=== PATIENT | male | born 1970 | race Caucasian/White ===

== ENCOUNTER 2016-09-27 08:37 | Emergency (ER) | payer OTHER ==
[2016-09-27 09:39] VITALS: BP 159/102
--- NOTE | 2016-09-27 10:27 | UC ---
Truncal Trauma HPI - HPI Summary HPI Summary: The patient comes in today for: 1. Left chest pain: Onset: 19 days ago. Palliative/provocative: Pressing on it, coughing, moving, makes it worse. Rest makes it better. Quality: Stabbing Region: Upper left anterior chest. Severity: 5/10 Time: Constant. Associated symptoms: Event: 19 days ago, he was wrestling and during that time, he suffered onset of this problem. Hemoptysis: None. Dyspnea: None. "I know I have a rib fracture." * - History Of Current Complaint Chief Complaint: UCRespiratory Stated Complaint: RIB PAIN Time Seen by Provider: 09/27/16 10:22 Hx Obtained From: Patient - Allergies/Home Medications Allergies/Adverse Reactions: Allergies Allergy/AdvReac Type Severity Reaction Status Date / Time No Known Allergies Allergy Verified 09/27/16 09:23 PMH/Surg Hx/FS Hx/Imm Hx Previously Healthy: No - Skin cancer. Endocrine History Of: Denies: Diabetes, Thyroid Disease, Hyperthyroidism, Hypothyroidism, Dyslipidemia Cardiovascular History Of: Reports: Hypertension - ON MEDS Denies: Cardiac Disorders, Pacemaker/ICD, Myocardial Infarction, Congestive Heart Failure, Atrial Fibrillation, Deep Vein Thrombosis, Bleeding Disorders Respiratory History Of: Reports: Bronchitis - 2 WEEKS AGO, SLIGHT COUGH STILL Denies: COPD, Asthma, Pneumonia, Pulmonary Embolism GI/ History Of: Reports: Kidney Stones - IN THE PAST Denies: Gastroesophageal Reflux, Ulcer, Gastrointestinal Bleed, Gall Bladder Disease, Diverticulitis, Renal Disease, Urosepsis Neurological History Of: Denies: TIA, CVA, Dementia, Seizures, Migraine Psychological History Of: Reports: Anxiety - ON MEDS Denies: Depression, Bipolar Disorder, Schizophrenia, Post Traumatic Stress Disorder Cancer History Of: Denies: Lung Cancer, Colorectal Cancer, Breast Cancer, Prostate Cancer, Cervical Cancer Other History Of: Negative For: HIV, Hepatitis B, Hepatitis C, Anticoagulant Therapy - Surgical History Surgical History: Yes Surgery Procedure, Year, and Place: Bilateral Inguinal Herrniorhaphy. WISDOM TEETH - Family History Known Family History: Positive: Cardiac Disease - Father [place] precipitated by accident. Negative: Unknown, Diabetes - Social History Occupation: Employed Full-time Alcohol Use: Daily Alcohol Amount: 6 beers daily Substance Use Type: None Substance Use Comment - Amount & Last Used: marijuana "once a month ... daily if I have it" Smoking Status (MU): Heavy Every Day Tobacco Smoker Type: Cigarettes Amount Used/How Often: 1 PPD Length of Time of Smoking/Using Tobacco: 35 Years Have You Smoked in the Last Year: Yes Household Exposure Type: Cigarettes Review of Systems Constitutional: Negative Skin: Negative Eyes: Negative ENT: Negative Respiratory: Negative Cardiovascular: Negative Gastrointestinal: Negative Genitourinary: Negative All Other Systems Reviewed And Are Negative: Yes Physical Exam Triage Information Reviewed: Yes Appearance: Well-Appearing, No Pain Distress, Well-Nourished Vital Signs: Initial Vital Signs Temp 98.4 F 09/27/16 09:24 Pulse 91 09/27/16 09:24 Resp 24 09/27/16 09:24 BP 159/102 09/27/16 09:24 Pulse Ox 100 09/27/16 09:24 Vital Signs Reviewed: Yes Eyes: Positive: Conjunctiva Clear. Negative: Discharge ENT: Positive: Hearing grossly normal. Negative: Pharyngeal erythema, Nasal congestion, Nasal drainage, TM bulging, TM dull, TM red, Tonsillar swelling, Tonsillar exudate Dental: Negative: Gross Decay/Caries @, Dental Fracture @ Neck: Positive: Supple, Nontender, No Lymphadenopathy. Negative: Nuchal Rigidity Respiratory: Positive: Lungs clear, No respiratory distress, No accessory muscle use. Negative: Crackles, Wheezing Cardiovascular: Positive: RRR, No Murmur Abdomen Description: Positive: Nontender, No Organomegaly, Soft. Negative: Distended, Guarding Musculoskeletal: Positive: Strength Intact, ROM Intact Neurological: Positive: Alert, Muscle Tone Normal Psychological: Negative: Age Appropriate Behavior, Consolable Skin: Negative: rashes, breakdown Truncal Trauma Course/Dx - Differential Dx/Diagnosis Provider Diagnoses: Rib injury Discharge - Discharge Plan Condition: Stable Disposition: HOME Patient Education Materials: Rib Fracture (ED) Referrals: Francisco Browning DO [Primary Care Provider] - 1 Week (Please see your primary care provider in about a week to see how well you are doing. If you get worse, please be seen sooner.)
--- NOTE | 2016-09-27 11:05 | RAD ---
INDICATION: Rib pain COMPARISON: Chest x-ray May 28, 2016 TECHNIQUE: Multiple views of the ribs were obtained. FINDINGS: Bones: There is no evidence of acute rib fracture. There are old left ninth and right ninth and 10th rib fractures. LUNGS: The lungs are clear. There is no pneumothorax. Pleural spaces: There is no evidence of hemothorax. Other: None IMPRESSION: No acute rib fracture. Old, healed, bilateral rib fractures.
== END 2016-09-27 11:05 | disposition home or self-care (01) ==
LOC: UCCORT 08:37
DX: R07.81 Pleurodynia (principal); I10 Essential (primary) hypertension; F41.9 Anxiety disorder, unspecified; F10.99 Alcohol use, unspecified with unspecified alcohol-induced disorder; F12.90 Cannabis use, unspecified, uncomplicated; F17.210 Nicotine dependence, cigarettes, uncomplicated; Z87.81 Personal history of (healed) traumatic fracture
CPT/HCPCS: 99211; G0463

== ENCOUNTER 2018-08-02 13:23 | Emergency (ER) | payer SELFPAY ==
[2018-08-02 13:43] VITALS: BP 135/86
--- NOTE | 2018-08-02 13:52 | UC ---
General HPI - HPI Summary HPI Summary: L eye red, irritated, crusting and puss, onset yesterday. today, R eye is a little red. no contact use or visual loss. + head congestion and sore throat x 2 days. - History of Current Complaint Chief Complaint: UCEye Stated Complaint: LEFT EYE COMPLAINT Time Seen by Provider: 08/02/18 13:34 Pain Intensity: 0 Aggravating: nothing Alleviating: nothing Associated Signs & Symptoms: Negative: Fever, Headache - Allergy/Home Medications Allergies/Adverse Reactions: Allergies Allergy/AdvReac Type Severity Reaction Status Date / Time No Known Allergies Allergy Verified 08/02/18 13:38 Home Medications: Home Medications amLODIPine TAB* [Norvasc 5 mg TAB*] 10 mg PO DAILY 08/02/18 [History Confirmed 08/02/18] PMH/Surg Hx/FS Hx/Imm Hx Cardiovascular History: Hypertension Psychological History: Anxiety Other History Of: Negative For: HIV, Hepatitis B, Hepatitis C, Anticoagulant Therapy - Surgical History Surgical History: Yes Surgery Procedure, Year, and Place: Bilateral Inguinal Herrniorhaphy. WISDOM TEETH - Family History Known Family History: Positive: Cardiac Disease - Father [place] precipitated by accident. Negative: Unknown, Diabetes - Social History Occupation: Employed Full-time Alcohol Use: 6 beers daily Alcohol Amount: 6 beers daily Substance Use Type: None Substance Use Comment - Amount & Last Used: marijuana "once a month ... daily if I have it" Smoking Status (MU): Heavy Every Day Tobacco Smoker Type: Cigarettes Amount Used/How Often: 1 PPD Length of Time of Smoking/Using Tobacco: Since Age 9 Have You Smoked in the Last Year: Yes Household Exposure Type: Cigarettes Review of Systems All Other Systems Reviewed And Are Negative: Yes Eyes: Positive: Drainage - L, Eye Redness. Negative: Blurred Vision, Diplopia, Photophobia ENT: Positive: Sore Throat, Nasal Discharge Is Patient Immunocompromised?: Yes Physical Exam Triage Information Reviewed: Yes Appearance: Well-Appearing Vital Signs: Initial Vital Signs Temp 98 F 08/02/18 13:36 Pulse 89 08/02/18 13:36 Resp 14 08/02/18 13:36 BP 135/86 08/02/18 13:36 Pulse Ox 100 08/02/18 13:36 Vital Signs Reviewed: Yes Eyes: Positive: Other: - vision with no correction OD/OU/OS=20/30. No auricular adenopathy. No periorbital edema or rash. Conjunctive deeply injected on L and mild on R with mild conjunctival chemosis on L as well. ac's clear. PERRL, EOMI. ENT: Positive: Pharyngeal erythema - with mild swelling, Nasal congestion, TMs normal, Uvula midline. Negative: Nasal drainage, Trismus, Muffled voice, Hoarse voice, Sinus tenderness Neck: Positive: Supple, Nontender, No Lymphadenopathy Respiratory: Positive: Lungs clear, Normal breath sounds Cardiovascular: Positive: RRR, No Murmur Abdomen Description: Positive: Nontender, No Organomegaly, Soft Bowel Sounds: Positive: Present Musculoskeletal: Positive: ROM Intact Neurological: Positive: Alert Psychological: Positive: Age Appropriate Behavior Skin Exam: Normal Course/Dx - Course Course Of Treatment: hx and exam c/w viral conjunctivitis (possible adeno virus ) with secodary bacterial infection given hx of purulent drainage thus will tx with polytrim drops. will also refer to opthamology due to degree of inflammation in L eye. no concern for FB, abrasion or ulceration. rapid strep= NEG. - Diagnoses Provider Diagnosis: Conjunctivitis, Chemosis, conjunctiva, URI (upper respiratory infection) Discharge - Sign-Out/Discharge Documenting (check all that apply): Patient Departure All imaging exams completed and their final reports reviewed: No Studies - Discharge Plan Condition: Stable Disposition: HOME Prescriptions: Polymyx/Trimethoprim OPTH* [Polytrim OPHTH*] 1 drop BOTH EYES Q3H 7 Days #1 btl Patient Education Materials: Upper Respiratory Infection (DC), Conjunctivitis ( ED), Pharyngitis (ED) Forms: *Work Release Referrals: Marlon Ward MD [Primary Care Provider] - Puja Goyal MD [Medical Doctor] - Additional Instructions: FOLLOW UP PRIMARY CARE IF SINUSES AND THROAT ARE NOT BETTER IN 5-7 DAYS OR SOONER IF WORSE. FOLLOW UP WITH DR GOYAL IN 1-2 DAYS FOR A RECHECK OF YOUR EYES OR SOONER IF WORSE. - Billing Disposition and Condition Condition: STABLE Disposition: Home
== END 2018-08-02 14:14 | disposition home or self-care (01) ==
LOC: UCCORT 13:23
DX: B30.9 Viral conjunctivitis, unspecified (principal); H11.429 Conjunctival edema, unspecified eye; J06.9 Acute upper respiratory infection, unspecified; I10 Essential (primary) hypertension; F17.210 Nicotine dependence, cigarettes, uncomplicated
CPT/HCPCS: 87651; 99212; G0463

== ENCOUNTER 2019-07-02 10:44 | Emergency (ER) | payer BC, MEDICAID ==
[2019-07-02 11:21] VITALS: BP 135/81
--- NOTE | 2019-07-02 11:55 | UC ---
Truncal Trauma HPI - HPI Summary HPI Summary: 49 yo male fell off ladder 06/21 taken to trauma center ([facility]) injuries included: sternal fracture multiiple left sided rib fractures left pulmonary contusion left ptx left clavicular fx burst fx L1 requring surgery discharged with three days narcotic pain meds now just taking motrin pain is severe and making it difficult to sleep/do insentive spirometry mom and dad looking in on him multiple times daily he does not live alone - History Of Current Complaint Chief Complaint: UCGeneralIllness Stated Complaint: SOB Time Seen by Provider: 07/02/19 11:12 Hx Obtained From: Patient Onset/Duration: Sudden Onset, Lasting Days Severity Initially: Severe Severity Currently: Severe Pain Intensity: 10 Pain Scale Used: 0-10 Numeric Mechanism Of Injury: Fall From Height Of: - ? was on ladder..unsure how high up Aggravating Factor(s): Movement, Deep Breathing, Cough Alleviating factor(s): Nothing Associated Signs And Symptoms: Positive: Chest Pain Torso: 1 - swollen/ecchymotic 2 - tender 3 - sutures 4 - hardware tenting up here - Allergies/Home Medications Allergies/Adverse Reactions: Allergies Allergy/AdvReac Type Severity Reaction Status Date / Time levetiracetam Allergy Unknown Verified 07/02/19 10:57 Reaction Details Home Medications: Home Medications oxyCODONE/Acetamin 5/325 MG* [Percocet 5/325 TAB*] 1 tab PO Q4H PRN MDD 6 tab [History Confirmed 07/02/19] PMH/Surg Hx/FS Hx/Imm Hx Previously Healthy: Yes Cardiovascular History: Hypertension Other History Of: Negative For: HIV, Hepatitis B, Hepatitis C, Anticoagulant Therapy - Surgical History Surgical History: Yes Surgery Procedure, Year, and Place: Bilateral Inguinal Herrniorhaphy. WISDOM TEETH. patternmaker sample inplantation. spine - Family History Known Family History: Positive: Cardiac Disease - Father [place] precipitated by accident., Hypertension Negative: Unknown, Diabetes - Social History Alcohol Use: Daily Alcohol Amount: 12 (states 4-6 beers after week) None past couple of days Substance Use Type: Prescribed Substance Use Comment - Amount & Last Used: occasional Smoking Status (MU): Heavy Every Day Tobacco Smoker Type: Cigarettes Amount Used/How Often: reports 1/2 ppd Length of Time of Smoking/Using Tobacco: Since Age 9 Have You Smoked in the Last Year: Yes Household Exposure Type: Cigarettes Review of Systems All Other Systems Reviewed And Are Negative: Yes Constitutional: Positive: Fatigue Skin: Positive: Bruising Eyes: Positive: Negative ENT: Positive: Negative Respiratory: Negative: Shortness Of Breath, Cough Cardiovascular: Positive: Chest Pain Gastrointestinal: Positive: Negative. Negative: Abdominal Pain Genitourinary: Positive: Negative Musculoskeletal: Positive: Negative Neurological: Positive: Negative Psychological: Positive: Negative Physical Exam Vital Signs: Initial Vital Signs Temp 98.5 F 07/02/19 11:02 Pulse 87 07/02/19 11:02 Resp 24 07/02/19 11:02 BP 135/81 07/02/19 11:02 Pulse Ox 100 07/02/19 11:02 Truncal Trauma Course/Dx - Differential Dx/Diagnosis Provider Diagnosis: Fracture of ribs, multiple, Sternal fracture, Closed left clavicular fracture, Burst fracture of lumbar vertebra Discharge ED - Sign-Out/Discharge Documenting (check all that apply): Patient Departure All imaging exams completed and their final reports reviewed: No Studies - Discharge Plan Condition: Stable Disposition: HOME Patient Education Materials: Rib Fracture (ED) Referrals: Wallace Robb MD [Primary Care Provider] - Additional Instructions: percocet 5/235 one every 4 hours for severe pain # 18 restart your stool softener take a picture of your back concern and send it to your back surgeon see your specimen preparation assistant early next week to ER for new or worsening symptoms - Billing Disposition and Condition Condition: STABLE Disposition: Home
== END 2019-07-02 12:15 | disposition home or self-care (01) ==
LOC: UCCORT 10:44
DX: R07.89 Other chest pain (principal); S22.42XD Multiple fractures of ribs, left side, subsequent encounter for fracture with routine healing; S22.20XD Unspecified fracture of sternum, subsequent encounter for fracture with routine healing; S42.002D Fracture of unspecified part of left clavicle, subsequent encounter for fracture with routine healing; S32.011D Stable burst fracture of first lumbar vertebra, subsequent encounter for fracture with routine healing; W11.XXXD Fall on and from ladder, subsequent encounter; I10 Essential (primary) hypertension; Z88.8 Allergy status to other drugs, medicaments and biological substances; F17.210 Nicotine dependence, cigarettes, uncomplicated
CPT/HCPCS: 99212; G0463

== ENCOUNTER 2019-07-28 11:56 | Emergency (ER) | payer MEDICAID, OTHER ==
[2019-07-28 12:24] VITALS: BP 154/97
--- NOTE | 2019-07-28 12:56 | UC ---
Abdominal Pain Male HPI - HPI Summary HPI Summary: 49 yo male fell off ladder 06/21 taken to trauma center ([facility]) injuries included: sternal fracture multiiple left sided rib fractures left pulmonary contusion left clavicular fx burst fx L1 requring surgery now with 1-2 week hx of increasing left flank swelling and pain no hematuria no bowel or bladder dysfunction - History of Current Complaint Chief Complaint: UCAbdominalPain Stated Complaint: BACK/MIDRIFT PAIN(BACK SURGERY A MONTH AGO) Time Seen by Provider: 07/28/19 12:16 Hx Obtained From: Patient Onset/Duration: Gradual Onset Timing: Constant Severity Initially: Mild Severity Currently: Mild Pain Intensity: 3 Pain Scale Used: 0-10 Numeric Location: Other - left flank Character: Dull Aggravating Factor(s): Movement Alleviating Factor(s): Rest Associated Signs And Symptoms: Positive: Negative Male Torso: 1 - pain and swelling here extending to left flank - Allergies/Home Medications Allergies/Adverse Reactions: Allergies Allergy/AdvReac Type Severity Reaction Status Date / Time levetiracetam Allergy Unknown Verified 07/28/19 12:08 Reaction Details Home Medications: Home Medications Cephalexin CAP* [Keflex 500 CAP*] 1 tab PO QID 07/28/19 [History Confirmed 07/28] Gabapentin 1 tab PO TID 07/28/19 [History Confirmed 07/28/19] Sertraline* [Zoloft*] 1 tab PO DAILY 07/28/19 [History Confirmed 07/28/19] amLODIPine TAB* [Norvasc 5 mg TAB*] 1 tab PO DAILY 07/28/19 [History Confirmed 07/28/19] PMH/Surg Hx/FS Hx/Imm Hx Previously Healthy: Yes - alcoholism Cardiovascular History: Other Other Cardiovascular History: syncope Other History Of: Negative For: HIV, Hepatitis B, Hepatitis C, Anticoagulant Therapy - Surgical History Surgical History: Yes Surgery Procedure, Year, and Place: Bilateral Inguinal Herrniorhaphy. WISDOM TEETH. 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 05/2019 - Family History Known Family History: Positive: Cardiac Disease - Father [place] precipitated by accident., Hypertension Negative: Unknown, Diabetes - Social History Alcohol Use: Daily Alcohol Amount: 12 (states 4-6 beers after week) None past couple of days Substance Use Type: None Substance Use Comment - Amount & Last Used: occasional Smoking Status (MU): Former Smoker Type: Cigarettes Amount Used/How Often: reports 1/2 ppd Length of Time of Smoking/Using Tobacco: Since Age 9 Have You Smoked in the Last Year: Yes When Did the Patient Quit Smoking/Using Tobacco: 07/19/19 Household Exposure Type: Cigarettes Review of Systems All Other Systems Reviewed And Are Negative: Yes Constitutional: Positive: Negative Skin: Positive: Negative Eyes: Positive: Negative ENT: Positive: Negative Respiratory: Positive: Negative Cardiovascular: Positive: Negative Gastrointestinal: Positive: Abdominal Pain - left flank pain and swelling Motor: Positive: Negative Neurovascular: Positive: Negative Musculoskeletal: Positive: Negative Neurological: Positive: Negative Psychological: Positive: Negative Physical Exam Triage Information Reviewed: Yes Appearance: Pain Distress - moves slowly and deliberately Vital Signs: Initial Vital Signs Temp 98.2 F 07/28/19 12:11 Pulse 98 07/28/19 12:11 Resp 16 07/28/19 12:11 BP 154/97 07/28/19 12:11 Pulse Ox 100 07/28/19 12:11 Vital Signs Reviewed: Yes Eyes: Positive: Conjunctiva Clear ENT: Positive: Hearing grossly normal, Uvula midline. Negative: Nasal congestion, Nasal drainage, Tonsillar swelling, Tonsillar exudate, Sinus tenderness Dental Exam: Normal Neck: Positive: Supple, Nontender, No Lymphadenopathy Respiratory: Positive: Lungs clear, Normal breath sounds, No respiratory distress Cardiovascular: Positive: RRR, No Murmur Abdomen Description: Positive: Soft, Other: - see image/ swollen left flank. Negative: Bruit, CVA Tenderness (R), CVA Tenderness (L) Bowel Sounds: Positive: Present Musculoskeletal: Positive: No Edema Neurological: Positive: Alert Psychological Exam: Normal Skin Exam: Normal Diagnostics - Radiology No standard instances Radiology Interpretation Completed By: Radiologist Summary of Radiographic Findings: mild to mod left pleural effusion Abd Pain Male Course/Dx - Differential Dx/Clinical Impression Provider Diagnosis: Pleural effusion, left Discharge ED - Sign-Out/Discharge Documenting (check all that apply): Patient Departure All imaging exams completed and their final reports reviewed: Yes - Discharge Plan Condition: Stable Disposition: HOME Patient Education Materials: Pleural Effusion (ED) Referrals: Marlon Ward MD [Primary Care Provider] - 1 Week Additional Instructions: To ER for fever or shortness of breath I suggest you get rechecked by your primary in 1 week you may need to be re xrayed to recheck the size of your effusion - Billing Disposition and Condition Condition: STABLE Disposition: Home
== END 2019-07-28 14:13 | disposition home or self-care (01) ==
LOC: UCCORT 11:56
DX: J90 Pleural effusion, not elsewhere classified (principal); R10.9 Unspecified abdominal pain; R19.00 Intra-abdominal and pelvic swelling, mass and lump, unspecified site; S22.20XA Unspecified fracture of sternum, initial encounter for closed fracture; S22.42XA Multiple fractures of ribs, left side, initial encounter for closed fracture; S27.321A Contusion of lung, unilateral, initial encounter; S42.002A Fracture of unspecified part of left clavicle, initial encounter for closed fracture; Z88.8 Allergy status to other drugs, medicaments and biological substances; Z87.891 Personal history of nicotine dependence; W11.XXXA Fall on and from ladder, initial encounter; Y92.9 Unspecified place or not applicable
CPT/HCPCS: 71046; 99211; G0463

== ENCOUNTER 2019-08-11 12:48 | Emergency (ER) | payer OTHER | END 2019-08-11 13:12 | disposition left against medical advice (07) | LOC: UCCORT 12:48 | DX: Z53.21 Procedure and treatment not carried out due to patient leaving prior to being seen by health care provider (principal) ==